=== PATIENT | male | born 1995 | race Caucasian/White ===

== ENCOUNTER 2019-06-20 18:09 | Emergency (ER) | payer OTHER ==
[~2019-06-20] VITALS: Ht 185.4 cm; Wt 74.0 kg
[2019-06-20 18:12] VITALS: BP 130/84
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
[2019-06-20] MEDS ORDERED: NEOSPORIN OINT. PKT 1 PACKET ONE (19:03)
--- NOTE | 2019-06-20 19:05 | NUR ---
REPORT FROM ELIER WILSON.
== END 2019-06-20 19:30 | disposition home or self-care (01) ==
LOC: ED 19:20
DX: S00.81XA Abrasion of other part of head, initial encounter (principal); S50.811A Abrasion of right forearm, initial encounter; S80.212A Abrasion, left knee, initial encounter; W18.30XA Fall on same level, unspecified, initial encounter; Y93.89 Activity, other specified; Y92.410 Unspecified street and highway as the place of occurrence of the external cause; Y99.8 Other external cause status
CPT/HCPCS: 99282